=== PATIENT | female | born 1985 | race Caucasian/White ===

== ENCOUNTER 2016-03-17 09:48 | Emergency (ER) | payer OTHER ==
[~2016-03-17] VITALS: Ht 165.1 cm; Wt 90.7 kg
[~2016-03-17 09:48] MED LIST: AMOXICILLIN 50500 MG PO; AMOXICILLIN500 M1 PO; AMOXICILLIN875 MG PO; ANAPROX DS550 MG PO; ATENOLOL 25 MG25 M1; BACTRIM DS TAB1 EACH; BACTRIM DS TAB1 EACH PO; BACTROBAN15 GM TP; BACTROBAN22 GM TP; BIRTH CONTROL; CEPHALEXIN 500500 M3 PO; CLEOCIN HCL150 MG PO; CLEOCIN HCL300 MG PO; CORTISPORIN OTI10 M2 OT; CRESTOR10 MG PO; DIFLUCAN150 MG PO; ELIMITE60 GM TP; FLEXERIL PO; HYDROCODON-ACE1 EAC7 PO; HYDROCODONE-AP1 EAC6 PO; IBUPROFEN 600600 M1 PO; IBUPROFEN 800800 M1 PO; IBUPROFEN 800800 MG PO; KEFLEX500 MG PO; LIDOCAINE VISC100 M1 SWISH&SPIT; LIDODERM 5%1 PATC1 TRANSDERM; LIORESAL 10 MG10 MG PO; LISINOPRIL10 MG; LORTAB 5-325 M1 EACH PO; LYRICA 75 MG CA75 MG PO; MEDROLDOSEPACK PO; MOBIC7.5 M1 PO; NABUMETONE 750750 M1 PO; NAPROSYN500 MG PO; NIZORAL A-D200 ML TP; NOHOMEMEDICATIONS; NORCO 5-325 TA1 EACH PO; PENICILLIN V P500 MG PO; PENICILLIN VK500 M1 PO; PENICILLIN VK500 MG PO; PREDNISONE50 MG PO; PRENATAL 19 CH1 EAC1 PO; PROMETHAZINE12.5 M1 PO; ROBAXIN 750 MG750 M1 PO; ROBAXIN 750 MG750 MG PO; ROBAXIN500 MG PO; SKELAXIN 800 M800 M1 PO; SPRINTEC1 EACH; SPRINTEC1 EACH PO; TORADOL 10 MG T10 MG PO; TRAMADOL 50 MG50 MG PO; ULTRACET TABLE1 EACH PO; ULTRAM 50MG TAB50 MG PO; VICODIN 5-5001 EACH PO; ZOFRAN ODT4 MG PO; ZOFRAN4 MG PO
[2016-03-17 09:51] VITALS: BP 142/88
[2016-03-17] MEDS ORDERED: PENICILLIN V P500 MG PO (10:15)
[2016-03-17] MEDS ORDERED: MOBIC15 MG PO (10:15)
[2016-03-17] MEDS ORDERED: TRAMADOL 50 MG50 MG PO (19:54)
[2016-04-05] MEDS ORDERED: TRAMADOL 50 MG50 MG PO (14:18)
[2016-04-05] MEDS ORDERED: LIDOCAINE VISC100 M1 MM (14:18)
[2016-04-05] MEDS ORDERED: AMOXICILLIN500 M1 PO (14:19)
[2016-04-12] MEDS ORDERED: HYDROCODONE-AP1 EAC6 PO (10:50)
[2016-04-17] MEDS ORDERED: APAP500 PO (16:49)
[2016-04-17] MEDS ORDERED: IBUPROFEN 800800 M1 PO (16:49)
[2016-04-17] MEDS ORDERED: TRAMADOL 50 MG50 MG PO (17:14)
[2016-04-17] MEDS ORDERED: PREDNISONE50 MG PO (17:14)
[2016-04-19] MEDS ORDERED: IBUPROFEN 600600 M1 PO (11:27)
[2016-04-24] MEDS ORDERED: LIDOCAINE VISC100 M1 MM (13:56)
[2016-05-14] MEDS ORDERED: TRAMADOL 50 MG50 MG PO (19:29)
[2016-05-14] MEDS ORDERED: KEFLEX500 MG PO (19:29)
== END 2016-03-17 10:32 | disposition home or self-care (01) ==
LOC: ER 09:48
DX: K04.01 Reversible pulpitis (principal); G89.29 Other chronic pain; I10 Essential (primary) hypertension; Z88.6 Allergy status to analgesic agent; Z88.1 Allergy status to other antibiotic agents; F17.210 Nicotine dependence, cigarettes, uncomplicated

== ENCOUNTER 2017-05-06 10:18 | Emergency (ER) | payer OTHER ==
[~2017-05-06] VITALS: Ht 167.6 cm; Wt 99.8 kg
[~2017-05-06 10:18] MED LIST changes: +APAP500 PO; +DICLOFENAC SODI75 MG PO; +HYDROCHLOROTH12.5 M1 PO; +KEFLEX500 M1 PO; +LIDOCAINE VISC100 M1 MM; +MOBIC15 MG PO; +PHENAZOPYRIDIN200 M2 PO; +PROZAC20 MG PO
[2017-05-06] MEDS ORDERED: TRAMADOL 50 MG50 MG PO (10:44)
[2017-05-06] MEDS ORDERED: KEFLEX500 M1 PO (10:44)
[2017-06-14] MEDS ORDERED: AMOXICILLIN 50500 MG PO (08:30)
[2017-06-14] MEDS ORDERED: ULTRAM 50MG TAB50 MG PO (08:30)
[2017-06-28] MEDS ORDERED: ULTRAM 50MG TAB50 MG PO ×2 (08:55→09:00)
[2017-07-08] MEDS ORDERED: NOHOMEMEDICATIONS (10:05)
[2017-07-08] MEDS ORDERED: AMOXIL 875 MG875 M1 PO (10:13)
[2017-07-08] MEDS ORDERED: LIDOCAINE VISC100 ML SWISH&SPIT (10:14)
[2017-07-13] MEDS ORDERED: AMOXICILLIN 50500 MG PO (08:40)
[2017-07-13] MEDS ORDERED: BACTRIM DS TAB1 EACH PO (08:53)
[2017-07-13] MEDS ORDERED: TRAMADOL 50 MG50 MG PO (08:53)
[2017-07-19] MEDS ORDERED: ULTRAM 50MG TAB50 MG PO (08:50)
[2017-07-19] MEDS ORDERED: PENICILLIN V P500 MG PO (08:50)
[2017-07-19] MEDS ORDERED: IBUPROFEN 800800 MG PO (08:50)
[2017-07-25] MEDS ORDERED: MEDROLDOSEPACK PO (09:27)
[2017-08-03] MEDS ORDERED: TRAMADOL 50 MG50 MG PO (09:01)
[2017-08-10] MEDS ORDERED: ULTRAM 50MG TAB50 MG PO (08:22)
[2017-08-10] MEDS ORDERED: BACTRIM DS TAB1 EACH PO (08:22)
[2017-08-23] MEDS ORDERED: KEFLEX500 M1 PO (08:34)
[2017-09-16] MEDS ORDERED: BACTRIM DS TAB1 EACH PO (08:38)
[2017-09-16] MEDS ORDERED: ULTRAM50 MG PO (08:38)
[2017-09-28] MEDS ORDERED: AMOXICILLIN 50500 MG PO (08:36)
[2017-09-28] MEDS ORDERED: ULTRAM 50MG TAB50 MG PO (08:36)
[2017-10-21] MEDS ORDERED: TRAMADOL 50 MG50 MG PO (09:21)
[2017-10-21] MEDS ORDERED: BACTRIM DS TAB1 EACH PO (09:21)
[2017-10-26] MEDS ORDERED: PENICILLIN V P500 MG PO (09:56)
[2017-10-26] MEDS ORDERED: IBUPROFEN 800800 MG PO (09:56)
[2017-11-08] MEDS ORDERED: BACTRIM DS TAB1 EACH PO (08:39)
[2017-11-08] MEDS ORDERED: HYDROCODON-ACE1 EAC7 PO (08:39)
[2017-11-24] MEDS ORDERED: KEFLEX500 M1 PO (09:11)
[2017-11-24] MEDS ORDERED: HYDROCODONE-AP1 EAC6 PO (09:11)
[2017-12-14] MEDS ORDERED: NORCO 5-325 TA1 EACH PO (10:09)
[2017-12-14] MEDS ORDERED: BACTRIM DS TAB1 EACH PO (10:09)
[2017-12-23] MEDS ORDERED: HYDROCODONE-AP1 EAC6 PO (10:20)
[2017-12-23] MEDS ORDERED: BACTRIM DS TAB1 EACH PO (10:20)
[2017-12-25] MEDS ORDERED: LIDOCAINE VISC100 ML TOP (13:06)
== END 2017-05-06 11:15 | disposition home or self-care (01) ==
LOC: ER 10:18
DX: S91.201A Unspecified open wound of right great toe with damage to nail, initial encounter (principal); L60.0 Ingrowing nail; I10 Essential (primary) hypertension; F32.9 Major depressive disorder, single episode, unspecified; F41.9 Anxiety disorder, unspecified; G89.29 Other chronic pain; M54.9 Dorsalgia, unspecified; Z88.5 Allergy status to narcotic agent; Z88.8 Allergy status to other drugs, medicaments and biological substances; F17.210 Nicotine dependence, cigarettes, uncomplicated; X58.XXXA Exposure to other specified factors, initial encounter; Y93.89 Activity, other specified; Y92.89 Other specified places as the place of occurrence of the external cause; Y99.8 Other external cause status